=== PATIENT | female | born 1950 | race Caucasian/White ===

== ENCOUNTER 2016-12-11 07:25 | Emergency (ER) | payer BC ==
[2016-12-11 07:49] VITALS: BP 151/77
--- NOTE | 2016-12-11 07:55 | UC ---
Respiratory Complaint HPI - HPI Summary HPI Summary: The patient comes in today for: 1. Cough and sinus congestion: Onset: One week ago. Palliative/provocative: Heat packs helps with drainage. Quality: Maxillary pressure. Region: Upper respiratory Severity: Ache Time: Constant. Associated symptoms: FEvers: None at this time. Rhinitis: Thick and discolored. Cough: Non-productive. * - History of Current Complaint Chief Complaint: UCRespiratory Stated Complaint: COUGH,DRAINAGE Time Seen by Provider: 12/11/16 07:46 Hx Obtained From: Patient - Allergies/Home Medications Allergies/Adverse Reactions: Allergies Allergy/AdvReac Type Severity Reaction Status Date / Time No Known Allergies Allergy Verified 12/11/16 07:31 PMH/Surg Hx/FS Hx/Imm Hx Previously Healthy: No Endocrine History: Dyslipidemia Cardiovascular History: Hypertension Other History Of: Negative For: HIV, Hepatitis B - Surgical History Surgical History: Yes Surgery Procedure, Year, and Place: OOPHORECTOMY, c section, laparscopy - Family History Known Family History: Positive: Cardiac Disease, Hypertension - Social History Occupation: Employed Full-time Alcohol Use: Rare Substance Use Type: None Smoking Status (MU): Never Smoked Tobacco Review of Systems Constitutional: Negative Skin: Negative Eyes: Negative ENT: Nasal Discharge Respiratory: Cough Cardiovascular: Negative Gastrointestinal: Negative All Other Systems Reviewed And Are Negative: Yes Physical Exam Triage Information Reviewed: Yes Appearance: Well-Appearing, No Pain Distress, Well-Nourished Vital Signs: Initial Vital Signs Temp 98.2 F 12/11/16 07:33 Pulse 100 12/11/16 07:33 Resp 16 12/11/16 07:33 BP 151/77 12/11/16 07:33 Pulse Ox 97 12/11/16 07:33 Vital Signs Reviewed: Yes Eyes: Positive: Conjunctiva Clear. Negative: Discharge ENT: Positive: Hearing grossly normal. Negative: Pharyngeal erythema, Nasal congestion, Nasal drainage, TM bulging, TM dull, TM red, Tonsillar swelling, Tonsillar exudate Dental: Negative: Gross Decay/Caries @, Dental Fracture @ Neck: Positive: Supple, Nontender, No Lymphadenopathy. Negative: Nuchal Rigidity Respiratory: Positive: Chest non-tender, Lungs clear, No respiratory distress. Negative: Rhonchi, Wheezing Cardiovascular: Positive: RRR, No Murmur Abdomen Description: Positive: Nontender, No Organomegaly, Soft. Negative: Distended, Guarding Musculoskeletal: Positive: Strength Intact, ROM Intact Neurological: Positive: Alert, Muscle Tone Normal Psychological: Positive: Age Appropriate Behavior, Consolable Skin: Negative: rashes, breakdown UC Diagnostic Evaluation - Laboratory O2 Sat by Pulse Oximetry: 97 Respiratory Course/Dx - Differential Dx/Diagnosis Differential Diagnosis/HQI/PQRI: Bronchitis, Laryngitis, Sinusitis Provider Diagnoses: Sinusitis Discharge - Discharge Plan Condition: Stable Disposition: HOME Patient Education Materials: Sinusitis (ED) Referrals: Gianfranco Monahan MD [Primary Care Provider] - 1 Week (Please see your primary care provider in a week to see how well you are doing. If you get worse, please be seen sooner in the ER or through us.)
== END 2016-12-11 08:02 | disposition home or self-care (01) ==
LOC: UCEAST 07:25
DX: J01.90 Acute sinusitis, unspecified (principal); I10 Essential (primary) hypertension; E78.5 Hyperlipidemia, unspecified
CPT/HCPCS: 99212; G0463

== ENCOUNTER 2017-10-24 15:40 | Emergency (ER) | payer BC ==
[2017-10-24] MEDS ORDERED: Acetaminophen TAB* 325 MG PO ONE (17:10)
--- NOTE | 2017-10-24 17:48 | UC ---
Anastasiya Choi Nilda, scribed for Odalys Wan MD on 10/24/17 at 1713 . Truncal Trauma HPI - HPI Summary HPI Summary: This patient is a 67 year old F presenting [place] [facility] [place] daughter with a chief complaint of constant L-rib and L-side pain s/p tripping in garage and falling onto bikes yesterday evening. No strike head. No LOC. no neck or back pain. no blood HEENT. Landed on left side. The patient rates the aching pain 6/10 in severity. Symptoms aggravated by lying down, deep inspiration, and movement. Symptoms alleviated by heating pad (last night) and Aleve (last taken this morning). Pt states she was able to ambulate after the fall with no assistance. She denies LOC, SOB,bleeding from HEENT, abd pain, N/V, loss of appetite, and abnormal urinary symptoms. Pt states no anticoagulants but positive cholesterol and HTN medications. No anticoagulants NKDA. Patients medication reviewed this visit. - History Of Current Complaint Chief Complaint: UCUpperExtremity Stated Complaint: RIBS INJURY FROM FALL Time Seen by Provider: 10/24/17 17:00 Hx Obtained From: Patient Onset/Duration: Sudden Onset, Lasting Days, Still Present Severity Currently: Moderate Pain Intensity: 6 Pain Scale Used: 0-10 Numeric Mechanism Of Injury: Fall From A Standing Position Aggravating Factor(s): Movement, Deep Breathing, Other - lying down Alleviating factor(s): Other - heating pad, Aleve Associated Signs And Symptoms: Negative: SOB, Abdominal Pain, Nausea, Vomiting - Allergies/Home Medications Allergies/Adverse Reactions: Allergies Allergy/AdvReac Type Severity Reaction Status Date / Time No Known Allergies Allergy Verified 10/24/17 16:02 PMH/Surg Hx/FS Hx/Imm Hx Endocrine History: Dyslipidemia Cardiovascular History: Hypertension Other History Of: Negative For: HIV, Hepatitis B - Surgical History Surgical History: Yes Surgery Procedure, Year, and Place: OOPHORECTOMY lt side - Family History Known Family History: Positive: Cardiac Disease, Hypertension - Social History Occupation: Retired Lives: Alone Alcohol Use: Rare Substance Use Type: None Smoking Status (MU): Never Smoked Tobacco Review of Systems Constitutional: Negative Skin: Bruising ENT: Other - negative HEENT bleeding Respiratory: Other - negative SOB Gastrointestinal: Other - negative abd pain, N/V, loss of appetite Genitourinary: Other - negative urinary symptoms Musculoskeletal: Other: - L-rib, L-side pain s/p mechanical fall Neurological: Other - negative LOC All Other Systems Reviewed And Are Negative: Yes Physical Exam Triage Information Reviewed: Yes Appearance: Well-Appearing, Well-Nourished, Other: - mild discomfort wtih movement Vital Signs: Initial Vital Signs Temp 97.9 F 10/24/17 15:57 Pulse 86 10/24/17 15:57 Resp 18 10/24/17 15:57 BP 149/88 10/24/17 15:57 Pulse Ox 96 10/24/17 15:57 Vital Signs Reviewed: Yes Eye Exam: Normal Eyes: Positive: Conjunctiva Clear ENT Exam: Normal ENT: Positive: Normal ENT inspection, Hearing grossly normal, TMs normal, Other - no hemotyp, no septal hematoma Dental Exam: Normal Neck exam: Normal Neck: Positive: Supple, Nontender, No Lymphadenopathy Respiratory Exam: Normal Respiratory: Positive: Lungs clear, Normal breath sounds, No respiratory distress, No accessory muscle use. Negative: Chest non-tender - + TTP left distal anterior,midaxline 2x3cm ecchymosis no crepits + TTP along distal rib skin intact Cardiovascular Exam: Normal Cardiovascular: Positive: RRR, No Murmur, Pulses Normal Abdominal Exam: Normal Abdomen Description: Positive: Nontender, No Organomegaly, Soft Bowel Sounds: Positive: Present Musculoskeletal Exam: Normal Musculoskeletal: Positive: Strength Intact Neurological Exam: Normal Neurological: Positive: Alert Psychological Exam: Normal Skin: Positive: Other - see chest Diagnostics - Radiology Rib XR Radiology Interpretation Completed By: Radiologist - Ribs XR reveals 1. NO EVIDENCE FOR FRACTURE OR PNEUMOTHORAX. 2. LOW LUNG VOLUMES SMALL LEFT BASILAR INFILTRATE MOST CONSISTENT WITH ATELECTASIS. Dr. Wan has reviewed this radiology report. Re-Evaluation - Re-Evaluation First Eval Re-Evaluation Time: 18:02 Comment: Reviewed imaging and treatment plan with pt. pt has an incentive spirometer at home. decline narcotic. encourage deep respiration. splint outside. strict return precautions. pt comfortable and in agreement with plan Truncal Trauma Course/Dx - Course Course Of Treatment: Blood pressure noted and patient informed to follow up with PCP. Pt fell last pm - mechanical. Pt with pain aling left distal/ anterior ribs. No crepitus. + ecchymosis. + BS throughout. abd soft, NT/ND. Will check imaging. APAP. reassess - Differential Dx/Diagnosis Provider Diagnoses: rib contusion. fall Discharge - Sign-Out/Discharge Documenting (check all that apply): Discharge - Discharge Plan Condition: Stable Disposition: HOME Patient Education Materials: Rib Contusion (ED) Referrals: Gianfranco Monahan MD [Primary Care Provider] - Additional Instructions: Okay to take Tylenol every 6 hours for pain. Take Aleve 2 times a day with food Apply ice (wrapped in a towel) 20 minutes at a time, 2-3 times a day for discomfort It is VERY important you take deep slow breaths several times a day to prevent pneumonia - use your incentive spirometer (machine with ball you have at home) 2 -3 times an hour while awake okay to hold a pillow or towel against your ribs to help with pain call your doctor tomorrow to schedule a follow-up appointment. If you pain worsens, you develop abdominal pain, vomiting, blood in your urine or ANY other concerns it is recommended you go directly to the hospital for further evaluation and treatment - Billing Disposition and Condition Condition: STABLE Disposition: HOME The documentation as recorded by the Anastasiya lance Nilda accurately reflects the service I personally performed and the decisions made by , Odalys Wan MD.
--- NOTE | 2017-10-24 17:51 | RAD ---
INDICATION: Left rib injury. COMPARISON: There are no prior studies available for comparison. TECHNIQUE: 5 views of the left ribs and dual-energy PA views of the chest were obtained. FINDINGS: No fracture or significant focal osseous abnormality is seen. The heart is within normal limits in size. The lungs are underinflated. There is a small infiltrate at the left lung base most consistent with atelectasis. No pneumothorax or pleural effusion is seen. IMPRESSION: 1. NO EVIDENCE FOR FRACTURE OR PNEUMOTHORAX. 2. LOW LUNG VOLUMES SMALL LEFT BASILAR INFILTRATE MOST CONSISTENT WITH ATELECTASIS.
[2017-10-24 18:44] VITALS: BP 0/0
== END 2017-10-24 18:24 | disposition home or self-care (01) ==
LOC: UCEAST 15:40
DX: R07.81 Pleurodynia (principal); E78.5 Hyperlipidemia, unspecified; I10 Essential (primary) hypertension
CPT/HCPCS: 99212; A9270-GY; G0463

== ENCOUNTER 2018-10-02 14:52 | Emergency (ER) | payer BC ==
[2018-10-02 15:00] VITALS: BP 150/85
--- NOTE | 2018-10-02 15:11 | UC ---
Hip/Pelvis Pain - HPI Summary HPI Summary: 68 yo female presents with LEFT hip pain. She tells me that 2 nights ago she was walking down her stairs and missed a step. Fell onto her left hip. Did not hit her head. She was able to get to her feet. Since that time has had pain - worse with ambulating. She has been taking tylenol and aleve with good relief of pain, however her pain has persisted and her friends and coworkers convinced her to get this "checked out". She denies numbness or tingling. No loss of bladder or bowel control. - History Of Current Complaint Chief Complaint: UCLowerExtremity Stated Complaint: L HIP INJURY Time Seen by Provider: 10/02/18 15:11 Hx Obtained From: Patient Onset/Duration: Sudden Onset Timing: Constant Severity Initially: Moderate Severity Currently: Moderate Pain Intensity: 5 Pain Scale Used: 0-10 Numeric - Allergies/Home Medications Allergies/Adverse Reactions: Allergies Allergy/AdvReac Type Severity Reaction Status Date / Time No Known Allergies Allergy Verified 10/02/18 15:00 Home Medications: Home Medications Ascorbic Acid [Vitamin C] 1,000 mg PO 10/02/18 [History] Calcium Carbonate/Vitamin D3 [Calcium 500 +D3 500-600 mg-Unit] 1 tab PO [History] [place]m-3 Fatty Acids/Fish Oil [Fish Oil 1,000 mg Softgel] 1 each PO 10/02/18 [ History] Ubidecarenone [Co Q-10] 150 mg PO 10/02/18 [History] PMH/Surg Hx/FS Hx/Imm Hx Endocrine History: Dyslipidemia Cardiovascular History: Hypertension Other History Of: Negative For: HIV, Hepatitis B - Surgical History Surgical History: Yes Surgery Procedure, Year, and Place: OOPHORECTOMY lt side - Family History Known Family History: Positive: Cardiac Disease, Hypertension - Social History Lives: With Family Alcohol Use: Rare Substance Use Type: None Smoking Status (MU): Never Smoked Tobacco Review of Systems All Other Systems Reviewed And Are Negative: Yes Constitutional: Positive: Negative Skin: Positive: Negative Respiratory: Positive: Negative Cardiovascular: Positive: Negative Neurovascular: Positive: Negative Musculoskeletal: Positive: Other: - Left hip pain Neurological: Positive: Negative Psychological: Positive: Negative Physical Exam - Summary Physical Exam Summary: GENERAL: NAD. WDWN. No pain distress. SKIN: No rashes, sores, lesions, or open wounds. NECK: Supple. FROM. Nontender. No lymphadenopathy. CHEST: CTAB. No r/r/w. No accessory muscle use. Breathing comfortably and in no distress. CV: RRR. Without m/r/g. Pulses intact. Cap refill <2seconds MSK: LEFT HIP Mild TTP over tronchanter. Low back NTTP. Negative SLR b/l for low back pain. Positive HILARIO on LEFT for hip and groin pain. Strength 5/5 B/L LEs including dorsiflexion and plantar flexion. FROM B/L LEs. Pain in left tronchanter with adduction and abduction. NEURO: Alert. Sensations intact B/L LEs L3-S1. Reflexes intact PSYCH: Age appropriate behavior. Triage Information Reviewed: Yes Vital Signs: Initial Vital Signs Temp 98.1 F 10/02/18 14:57 Pulse 88 10/02/18 14:57 Resp 18 10/02/18 14:57 BP 150/85 10/02/18 14:57 Pulse Ox 97 10/02/18 14:57 Vital Signs Reviewed: Yes Hip Injury Course/Dx - Course Course Of Treatment: XR: IMPRESSION: #. No radiographic evidence for LEFT hip or pelvic fracture. Suspect hip contusion. Advised to continue tylenol/ibuprofen, rest, and ice to the area. If symptoms do not improve in a few days to f/u with Ortho. - Differential Dx/Diagnosis Provider Diagnosis: Contusion, hip Discharge - Sign-Out/Discharge Documenting (check all that apply): Patient Departure All imaging exams completed and their final reports reviewed: Yes - Discharge Plan Condition: Stable Disposition: HOME Patient Education Materials: Hip Contusion (ED) Referrals: Gianfranco Monahan MD [Primary Care Provider] - Rebecca Fernandez MD [Medical Doctor] - If Needed Additional Instructions: If you develop a fever, shortness of breath, chest pain, new or worsening symptoms - please call your PCP or go to the ED. Your blood pressure was high at todays visit. Please see your primary provider within 4 weeks for recheck and re-evaluation. 1) Rest and apply ice to your hip to reduce pain 2) If your symptoms do not improve - please call Orthopedics at the number below to schedule a follow up appointment - Billing Disposition and Condition Condition: STABLE Disposition: Home
== END 2018-10-02 15:40 | disposition home or self-care (01) ==
LOC: UCEAST 14:52
DX: S70.02XA Contusion of left hip, initial encounter (principal); I10 Essential (primary) hypertension; W10.8XXA Fall (on) (from) other stairs and steps, initial encounter; Y93.01 Activity, walking, marching and hiking
CPT/HCPCS: 99211; G0463